=== PATIENT | male | born 1960 ===

== ENCOUNTER → 2017-12-06 | Outpatient (CLI) | payer OTHER ==
[2017-12-03 10:36] VITALS: BMI 32.1
[2017-12-06 14:41] VITALS: BP 127/80; PULSE 69; RESP 16; TEMP 97.5
--- NOTE | 2017-12-06 16:58 | P.PAINCN ---
History of Present Illness - Reason for Consult Consult date: 12/06/17 - Chief Complaint Left anterior chest wall pain - History of Present Illness This is a 57-year-old gentleman who presents as a new patient to the [facility] pain clinic with primary complaint of left anterior chest wall pain. Pain began about 2 years ago and patient was driving. Patient cannot recall any inciting event that could've led to pain in that particular location. Patient has seen multiple physicians regarding this specific pain is yet to receive a definitive diagnosis. Most extensively, he was being seen in [facility] by other pain physicians where he had a thorough workup that included MRIs of his neck, low back, thoracic spine, shoulders. He also had multiple procedures which have included thoracic medial branch blocks, thoracic epidurals , cervical medial branch blocks, cervical epidurals, shoulder injections, and none have provided any significant short-term or long-term relief with the patient is seeking. Patient presents today with pain that is 11 out of 10 in severity located along his anterior chest wall on the left side. He complains of some radiating pain down his left arm. Does not describe any numbness or tingling in his fingers. Patient states that the pain is continuous, and describes it as throbbing, sharp , aching stabbing pain. Patient is currently being treated by his primary care doctor and is taking [place] every 4-6 hours. Patient presents for a consultation and second opinion regarding his pain. I reviewed all the patient' s medical records thoroughly, it appears that all appropriate diagnostic workup was done, and that all therapeutic procedures were appropriate. Patient is inquiring about alternative therapies that could potentially provide him with some pain relief. I had a long discussion with this patient regarding spinal cord stimulation and the potential benefits that it may provide. 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 I discussed the risks and benefits of spinal cord simulation with patient, I gave him information regarding spinal cord stimulation, and discussed with him that the benefit his ability to perform paresthesia mapping and potentially covering the locations of his pain with spinal cord stimulation. Review of Systems Constitutional: Reports chronic pain, Reports lethargy, Reports malaise, Reports weight gain Eyes: denies bulging eye, denies decreased vision, denies diplopia Past Medical History Past Medical History: GERD/Reflux, Hypertension Additional Past Medical History / Comment(s): SEVERE LEFT SIDED RIB AND ABD. PAIN. OCCASSIONAL LT SIDE OF FACE AND FINGERS N/T History of Any Multi-Drug Resistant Organisms: None Reported Past Surgical History: Hernia Repair Additional Past Surgical History / Comment(s): COLONOSCOPY. LIPOMA REMOVED FROM BACK. BILAT CATARACTS REMOVED Past Anesthesia/Blood Transfusion Reactions: No Reported Reaction Smoking Status: Never smoker - Past Family History Mother Family Medical History: No Reported History Medications and Allergies Home Medications Medication Instructions Recorded Confirmed Type Amitriptyline HCl [Elavil] 25 mg PO HS 12/03/17 12/06/17 History Aspirin [Adult Low Dose Aspirin EC] 81 mg PO DAILY 12/03/17 12/06/17 History Atenolol 100 mg PO DAILY 12/03/17 12/06/17 History Atorvastatin [Lipitor] 10 mg PO DAILY 12/03/17 12/06/17 History Cholecalciferol [Vitamin D3] 1,000 unit PO BID 12/03/17 12/06/17 History Cyclobenzaprine [Flexeril] 10 mg PO TID PRN 12/03/17 12/06/17 History DULoxetine HCL [Cymbalta] 30 mg PO BID 12/03/17 12/06/17 History Folic Acid 1 mg PO DAILY 12/03/17 12/06/17 History Multivitamin [Men's Multi-Vitamin] 1 each PO DAILY 12/03/17 12/06/17 History Pantoprazole [Protonix] 40 mg PO BID 12/03/17 12/06/17 History Polyethylene Glycol 3350 [Miralax] 17 gm PO DAILY 12/03/17 12/06/17 History Sildenafil Citrate [Viagra] 25 mg PO DAILY PRN 12/03/17 12/06/17 History Vitamin B Complex 1 each PO DAILY 12/03/17 12/06/17 History oxyCODONE-APAP 10-325MG [Percocet 1 tab PO Q4H PRN 12/03/17 12/06/17 History 10-325 mg] Allergies Allergy/AdvReac Type Severity Reaction Status Date / Time No Known Allergies Allergy Verified 12/03/17 10:23 Physical Exam Vitals: Vital Signs Temp Pulse Resp BP Pulse Ox 12/06/17 14:07 97.5 F L 69 16 127/80 93 L Chest wall exam: Patient has tenderness to palpation along left anterior chest between sixth and 12th rib patient has normal range of motion of left upper extremity. Assessment and Plan Assessment: #1 chronic pain syndrome #2 opioid dependency #3 potential chronic small fiber neuropathy Plan: I had a very lengthy discussion with this patient after reviewing his medical records. He's had appropriate workup and the potential causes of his abnormal chest pain. He is yet to have a biopsy of small fibers within that dermatome. I discussed with him potential chronic small fiber neuropathy, which is why I suggest the patient undergo spinal cord stimulator trial with paresthesia mapping to potentially mask some of the chronic painful symptoms this patient is experiencing. PQRS Measure Charge Sheet PQRS Narrative: Smoking Status Never smoker Do You Want the Pneumonia Vaccine Up to Date Vaccine AT THIS TIME? Blood Pressure 127/80 Pain Intensity [Left Abdomen] 7 Scale Used Numeric (1 - 10) Hx Alcohol Use (MH) Yes: 3 DRINKS A DAY. Home Medications: Ambulatory Orders Amitriptyline HCl [Elavil] 25 mg PO HS 12/03/17 Aspirin [Adult Low Dose Aspirin EC] 81 mg PO DAILY 12/03/17 Atenolol 100 mg PO DAILY 12/03/17 Atorvastatin [Lipitor] 10 mg PO DAILY 12/03/17 Cholecalciferol [Vitamin D3] 1,000 unit PO BID 12/03/17 Cyclobenzaprine [Flexeril] 10 mg PO TID PRN 12/03/17 DULoxetine HCL [Cymbalta] 30 mg PO BID 12/03/17 Folic Acid 1 mg PO DAILY 12/03/17 Multivitamin [Men's Multi-Vitamin] 1 each PO DAILY 12/03/17 Pantoprazole [Protonix] 40 mg PO BID 12/03/17 Polyethylene Glycol 3350 [Miralax] 17 gm PO DAILY 12/03/17 Sildenafil Citrate [Viagra] 25 mg PO DAILY PRN 12/03/17 Vitamin B Complex 1 each PO DAILY 12/03/17 oxyCODONE-APAP 10-325MG [Percocet 10-325 mg] 1 tab PO Q4H PRN 12/03/17
== END ==
LOC: PNWHC3 13:29
PROVIDERS: ATTEND Anesthesiology
DX: G89.4 Chronic pain syndrome (principal); R07.89 Other chest pain; M79.602 Pain in left arm; G62.9 Polyneuropathy, unspecified; K21.9 Gastro-esophageal reflux disease without esophagitis; I10 Essential (primary) hypertension; Z79.82 Long term (current) use of aspirin; Z79.899 Other long term (current) drug therapy; Z79.891 Long term (current) use of opiate analgesic
CPT/HCPCS: 99201; 99211